=== PATIENT | female | born 1945 | race Caucasian/White ===

== ENCOUNTER 2023-10-18 06:17 | Day surgery (SDC) | payer MEDICARE, SELFPAY ==
[2023-10-13 09:45] LABS: Hemoglobin 12.4 g/dL (12.0-16.0); Mean Corp Hgb Conc. 32.6 g/dL (33.0-37.0); Mean Corpuscular Hgb 29.5 pg (27.0-31.0); Mean Corpuscular Volume 90.5 fL (81.0-99.0); Platelet Count 331 10^3/uL (130-400); Red Cell Dist. Width 15.5 % (11.5-14.5); White Blood Cell Count 6.6 10^3/uL (4.8-10.8)
[2023-10-13 09:57] LABS: INR 1.14; PT 14.6 Sec (11.4-14.6)
[2023-10-13 10:28] LABS: Blood Urea Nitrogen 20 mg/dl (7-17); Calcium 9.7 mg/dl (8.4-10.2); Carbon Dioxide 31 mmol/L (22-30); Chloride 101 mmol/L (98-107); Glucose 95 mg/dl (70-99); Potassium 4.8 mmol/L (3.5-5.1); Sodium 137 mmol/L (135-145); eGFR > 60.00
[2023-10-13 10:42] VITALS: BMI 24.2
[2023-10-18] VITALS (8 sets, daily range): BP systolic 139–169; BP diastolic 53–84; BMI 24.3
[2023-10-18] MEDS: NORMOSOL-R 1000 IV (06:39)
[2023-10-18] MEDS: CYSVIEW KIT 100 MG INTRAVES (06:39)
[2023-10-18] MEDS: Pyridium 200 MG PO (09:46)
== END 2023-10-18 11:00 | disposition home or self-care (01) ==
LOC: SDS 06:17
PROVIDERS: ATTENDING PHYSICIAN Urology; FAMILY PHYSICIAN Family Medicine; OTHER PHYSICIAN Internal Medicine Cardiovascular Disease; REFERRING PHYSICIAN Internal Medicine
DX: N30.21 Other chronic cystitis with hematuria (principal)
CPT/HCPCS: 52204; C9738; 88307; 36415; 80048; 85027; 85610; 85730; 88341; 88342; A9589